=== PATIENT | male | born 1995 | race Caucasian/White ===

== ENCOUNTER 2016-10-09 22:09 | Emergency (ER) | payer OTHER ==
[~2016-10-09] VITALS: Ht 177.8 cm; Wt 128.0 kg
[~2016-10-09 22:09] MED LIST: BACTDS PO; CEPH-443 PO
[2016-10-09 22:12] VITALS: Ht 177.8 cm; Wt 128.0 kg
[2016-10-10] MEDS ORDERED: ONDANSETRON 4 MG INJ IV STA (01:33)
[2016-10-10] MEDS ORDERED: SOD CHLORIDE 0.9% 1,000 ML IV STA (01:33)
[2016-10-10] MEDS ORDERED: morphine 4 MG/ML VIAL IV STA (01:33)
[2016-10-10] MEDS ORDERED: LURA20TA PO (01:47)
--- NOTE | 2016-10-10 01:48 | ERD ---
ER Documentation Chief Complaint Date/Time DATE: 10/10/16 TIME: 01:46 Chief Complaint lower abdominal pain x 1 week HPI 20-year-old male presents to emergency department for complaints of left lower quadrant abdominal pain for one week, got worse today. Patient described the pain as sharp pain 9/10 scale, worse upon touching the area, denies any nausea vomiting diarrhea or constipation. Patient denies any fever or chills. Patient did not take medications to help with symptoms. Patient denies hematuria or dysuria. Patient denies any scrotal pain or scrotal swelling. Patient denies any penile discharge. Patient denies any sick contacts. ROS All systems reviewed and are negative except as per history of present illness. Medications Home Meds Active Scripts Sulfamethoxazole-Trimethoprim* (Bactrim* DS) 800-160 Mg Tab, 1 TAB PO BID for 7 Days, TAB Prov:JEFRY HERNANDEZ MD 02/25/16 Cephalexin* (Keflex*) 500 Mg Capsule, 500 MG PO QID for 7 Days, CAP Prov:JEFRY HERNANDEZ MD 02/25/16 Reported Medications Lurasidone Hcl (LATUDA) Unknown Strength Tablet, PO DAILY, #30 TAB 10/10/16 Allergies Allergies: Coded Allergies: No Known Allergy (Unverified , 10/09/16) PMhx/Soc Medical and Surgical Hx: pt denies Surgical Hx History of Surgery: No Anesthesia Reaction: No Hx Neurological Disorder: No Hx Respiratory Disorders: Yes (asthma ) Hx Cardiac Disorders: No Hx Psychiatric Problems: Yes (depression, anxiety, schizophrenia, social anxiety, ADD ) Hx Miscellaneous Medical Probl: Yes (left leg DVT; was on a 5150 within the last year; heroin abuse ) Hx Alcohol Use: Yes Hx Substance Use: Yes (heroin, meth abuse, smokes MJ, cocaine IN PAST) Hx Tobacco Use: Yes (1-1/2 pack a day ) Smoking Status: Current every day smoker FmHx Family History: diabetes Physical Exam Vitals Vital Signs Date Time Temp Pulse Resp B/P Pulse Ox O2 Delivery O2 Flow Rate FiO2 10/10/16 04:56 98.6 68 16 114/66 97 Room Air 10/09/16 22:12 98.6 98 20 135/72 98 Physical Exam GENERAL: The patient is well developed and appropriate for usual state of health, in no apparent distress. CHEST: Clear to auscultation bilaterally. There are no rales, wheezes or rhonchi. HEART: Regular rate and rhythm. No murmurs, clicks, rubs or gallops. No S3 or S4. ABDOMEN: Soft, left lower quadrant tenderness noted. Good bowel sounds. No rebound or guarding. No gross peritonitis. No gross organomegaly or masses. BACK: No midline or flank tenderness. EXTREMITIES: Equal pulses bilaterally. There is no peripheral clubbing, cyanosis or edema. No focal swelling or erythema. Full range of motion. Grossly neurovascularly intact. NEURO: Alert and oriented. Cranial nerves 2-12 intact. Motor strength in all 4 extremities with 5/5 strength. Sensation grossly intact. Normal speech and gait. SKIN: There is no apparent rash or petechia. The skin is warm and dry. HEMATOLOGIC AND LYMPHATIC: There is no evidence of excessive bruising or lymphedema. No gross cervical, axillary, or inguinal lymphadenopathy. Result Diagram: 10/10/16 0147 10/10/16 0147 Results 24 hrs Laboratory Tests Test 10/10/16 01:47 10/10/16 03:00 Alanine Aminotransferase (ALT/SGPT) 23IU/L Albumin 4.2g/dl Albumin/Globulin Ratio 1.61 Alkaline Phosphatase 66IU/L Anion Gap 18 Aspartate Amino Transf (AST/SGOT) 15IU/L Basophils # 0.110^3/ul Basophils % 0.9% Blood Urea Nitrogen 14mg/dl Calcium Level 9.5mg/dl Carbon Dioxide Level 25mmol/L Chloride Level 106mmol/L Creatinine 0.81mg/dl Direct Bilirubin 0.00mg/dl Eosinophils # 1.410^3/ul Eosinophils % 8.7% Globulin 2.60g/dl Glucose Level 94mg/dl Hematocrit 42.3% Hemoglobin 14.1g/dl Indirect Bilirubin 0.1mg/dl Lipase 81U/L Lymphocytes # 5.010^3/ul Lymphocytes % 31.6% Mean Corpuscular Hemoglobin 29.4pg Mean Corpuscular Hemoglobin Concent 33.3g/dl Mean Corpuscular Volume 88.1fl Mean Platelet Volume 10.1fl Monocytes # 1.410^3/ul Monocytes % 8.7% Neutrophils # 7.810^3/ul Neutrophils % 49.8% Nucleated Red Blood Cells # 0.010^3/ul Nucleated Red Blood Cells % 0.0/100WBC Platelet Count 60874^3/UL Potassium Level 3.9mmol/L Red Blood Count 4.8010^6/ul Red Cell Distribution Width 14.3% Sodium Level 145mmol/L Total Bilirubin 0.1mg/dl Total Protein 6.8g/dl White Blood Count 15.710^3/ul Urine Bilirubin NEGATIVE Urine Clarity CLEAR Urine Color LT. YELLOW Urine Glucose NEGATIVE% Urine Hemoglobin NEGATIVE Urine Ketones NEGATIVE Urine Leukocyte Esterase NEGATIVE Urine Nitrite NEGATIVE Urine Specific Mackey 1.020 Urine Total Protein NEGATIVE Urine Urobilinogen 0.2 E.U./dL Urine pH 5.5 Current Medications Medications (Trade) Dose Ordered Sig/Rory Route PRN Reason Start Time Stop Time Status Last Admin Dose Admin Sodium Chloride (NS) 1,000 ml @ 1,000 mls/hr Q1H STAT IV 10/10/16 01:33 10/10/16 02:32 DC 10/10/16 02:06 Morphine Sulfate (morphine) 4 mg ONCE STAT IV 10/10/16 01:33 10/10/16 01:34 DC 10/10/16 02:06 Ondansetron HCl 4 mg 4 mg ONCE STAT IV 10/10/16 01:33 10/10/16 01:34 DC 10/10/16 02:06 Sodium Chloride (NS) 100 ml @ ud STK-MED ONCE .ROUTE 10/10/16 02:53 10/10/16 02:54 DC 10/10/16 03:14 Iohexol (Omnipaque 300mg/ ml) 150 ml STK-MED ONCE .ROUTE 10/10/16 02:53 10/10/16 02:54 DC 10/10/16 03:14 Patient was given medication for pain here in emergency department, after treatment, patient verbalized feeling much better. Patient's pain is improved. Patient was given Zofran here in the emergency department. After treatment, patient was able to tolerate po fluids here in the emergency department without any vomiting. There is no signs and symptoms of dehydration. Normal saline IV bolus was given here in emergency department for rehydration, patient tolerated IV fluids. PROCEDURE: CT Abdomen and pelvis with contrast CLINICAL INDICATION: Abdominal pain TECHNIQUE: Spiral CT images through the abdomen and pelvis without administration of oral and during administration of 100 cc of Omnipaque-300 contrast material. Multiplanar reconstructions. The total exam CTDI equals 16.99 mGy and the total exam DLP equals 1145.36 mGy-cm. One or more of the following dose reduction techniques were used: automated exposure control, adjustment of the mA and/or kV according to patient size, or use of iterative reconstruction technique. COMPARISON: None. FINDINGS: Slight atelectasis of the lung bases is seen. No pleural effusion is seen. . The aorta is normal in caliber. The liver, spleen, adrenals, kidneys, and pancreas are unremarkable in appearance.. No biliary or pancreatic ductal dilatation is seen. The appendix is normal in appearance. No adenopathy or ascites is seen. There is no evidence for bowel obstruction, free air, or abscess. The bladder and prostate are unremarkable in appearance. There is a focal 2.3 x 2.9 cm area of inflammatory change within the fat anterior and medial to the distal descending colon with fat density centrally. The appearance is more suggestive of torsed appendix epiploica rather than focal diverticulitis although there is mild colonic diverticulosis. No bony abnormality is seen. IMPRESSION: Probable torsed appendix epiploica adjacent to the distal descending colon. Very mild distal descending colon diverticulitis is possible although less likely. No free air or abscess. RPTAT: [facility] Physician Padma Date Time Electronically viewed and signed by Dior Sequeira Physician on 10/10/2016 03 :29 LE/ CC: ENMANUEL GUY [employer] I discussed this case with my attending physician, Dr. Temple, he reviewed patient's CT scan abdomen and pelvis with me, he said outpatient management is appropriate at this time with ciprofloxacin and Flagyl ibuprofen and Nezperce, strict return to ER precautions for any worsening symptoms, 8 hour follow up is advised to the patient. Procedures/MDM Medical Decision Making: Patient's symptoms of leg is consistent with diverticulitis and a torsed appendix epiploica, per discussion with my attending physician, Dr. Levin, outpatient management is appropriate at this time, he recommended to send him patient with Flagyl, Cipro And pain medications. Strict return to ER precautions, 8 hour follow was appropriate at this time to ensure the patient is not developing abdominal emergencies. There is low suspicion for abdominal emergencies at this time. Patients abdominal exam is normal at this time. Patients radiology exam does not show any abdominal emergencies at this time. There is low suspicion for appendicitis, cholecystitis, abdominal aortic aneurysms or peritonitis at this time. There is low suspicion for sepsis. Patient appears well and is hemodynamically stable. Disposition: Home. Condition: Stable Prescription ciprofloxacin, Flagyl, ibuprofen, Nezperce Instructions: Patient is advised to take medications as prescribed. Patient is advised to rest, increase fluid intake and do brat diet for next 1-2 days and progress as tolerated. Patient is advised that if symptoms are worse, severe abdominal pain, uncontrolled vomiting, high fever, severe flank pain, worst signs and symptoms, to return to the emergency department immediately. Otherwise, patient can follow up with primary care doctor or here in emergency department in 8 hours. Departure Diagnosis: Primary Impression: Torsion of appendix epiploicae Additional Impression: Diverticulitis Diverticulitis site: large intestine Diverticulitis bleeding: without bleeding Diverticulitis complication: without perforation or abscess Qualified Code: K57.32 - Diverticulitis of large intestine without perforation or abscess without bleeding Condition: Stable Patient Instructions: Diverticulitis Additional Instructions: Patient is advised to take medications as prescribed. Patient is advised to rest, increase fluid intake and do brat diet for next 1-2 days and progress as tolerated. Patient is advised that if symptoms are worse, severe abdominal pain , uncontrolled vomiting, high fever, severe flank pain, worst signs and symptoms , to return to the emergency department immediately. Otherwise, patient can follow up with primary care doctor or here in emergency department in 8 hours. ENMANUEL GUY NP Oct 10, 2016 01:48
[2016-10-10 02:13] LABS: ADD SCAN DIFF NO
[2016-10-10 02:16] LABS: BASOPHIL # 0.1 10^3/ul (0.0-0.1); BASOPHILS % 0.9 % (0.0-2.0); EOSINOPHILS # 1.4 10^3/ul (0.0-0.5); EOSINOPHILS % 8.7 % (0.0-7.0); HEMATOCRIT 42.3 % (42.0-52.0); HEMOGLOBIN 14.1 g/dl (14.0-18.0); LYMPHOCYTES % 31.6 % (15.0-51.0); MEAN CORPUSCULAR HEMOGLOBIN 29.4 pg (29.0-33.0); MEAN CORPUSCULAR HGB CONC 33.3 g/dl (32.0-37.0); MEAN CORPUSCULAR VOLUME 88.1 fl (82.0-101.0); MEAN PLATELET VOLUME 10.1 fl (7.4-10.4); MONOCYTE # 1.4 10^3/ul (0.3-0.9); MONOCYTES % 8.7 % (0.0-11.0); NEUTROPHIL # 7.8 10^3/ul (1.6-7.5); NEUTROPHILS % 49.8 % (39.0-77.0); PLATELET COUNT 303 10^3/UL (140-415); RED CELL DISTRIBUTION WIDTH 14.3 % (11.5-14.5); WHITE BLOOD COUNT 15.7 10^3/ul (4.8-10.8)
[2016-10-10 02:25] LABS: ALBUMIN 4.2 g/dl (3.3-4.9); POTASSIUM 3.9 mmol/L (3.5-5.1)
[2016-10-10 02:27] LABS: CREATININE 0.81 mg/dl (0.61-1.24)
[2016-10-10 02:28] LABS: ALBUMIN/GLOBULIN RATIO 1.61; BILIRUBIN,INDIRECT 0.1 mg/dl (0-1.1); BILIRUBIN,TOTAL 0.1 mg/dl (0.2-1.3); CALCIUM 9.5 mg/dl (8.4-10.2); TOTAL PROTEIN 6.8 g/dl (6.1-8.1)
[2016-10-10] MEDS ORDERED: SOD CHLORIDE 0.9% 100 ML ONE (02:53)
[2016-10-10] MEDS ORDERED: IOHEXOL 300MG/ML 150 ML BTL ONE (02:53)
[2016-10-10 03:20] LABS: ADD UMIC NO; URINE BILIRUBIN (Dip) NEGATIVE (NEGATIVE); URINE BLOOD (Dip) NEGATIVE (NEGATIVE); URINE COLOR LT. YELLOW (YELLOW); URINE GLUCOSE (Dip) NEGATIVE (NEGATIVE); URINE KETONES (Dip) NEGATIVE (NEGATIVE); URINE LEUKOCYTE ESTERASE (Dip) NEGATIVE (NEGATIVE); URINE NITRITE (Dip) NEGATIVE (NEGATIVE); URINE TOTAL PROTEIN (Dip) NEGATIVE (NEGATIVE); URINE UROBILINOGEN (Dip) 0.2 E.U./dL (0.1-1.0)
--- NOTE | 2016-10-10 03:29 | RADRPT ---
PROCEDURE: CT Abdomen and pelvis with contrast CLINICAL INDICATION: Abdominal pain TECHNIQUE: Spiral CT images through the abdomen and pelvis without administration of oral and duri ng administration of 100 cc of Omnipaque-300 contrast material. Multiplanar reconstructions. The t otal exam CTDI equals 16.99 mGy and the total exam DLP equals 1145.36 mGy-cm. One or more of the fol lowing dose reduction techniques were used: automated exposure control, adjustment of the mA and/or kV according to patient size, or use of iterative reconstruction technique. COMPARISON: None. FINDINGS: Slight atelectasis of the lung bases is seen. No pleural effusion is seen. . The aorta is normal in caliber. The liver, spleen, adrenals, kidneys, and pancreas are unremarkable in appearance.. No biliary or pa ncreatic ductal dilatation is seen. The appendix is normal in appearance. No adenopathy or ascites is seen. There is no evidence for bowel obstruction, free air, or abscess. The bladder and prostate are unremarkable in appearance. There is a focal 2.3 x 2.9 cm area of inflammatory change within t he fat anterior and medial to the distal descending colon with fat density centrally. The appearanc e is more suggestive of torsed appendix epiploica rather than focal diverticulitis although there is mild colonic diverticulosis. No bony abnormality is seen. IMPRESSION: Probable torsed appendix epiploica adjacent to the distal descending colon. Very mild distal descen ding colon diverticulitis is possible although less likely. No free air or abscess. RPTAT: [facility] Physician Padma Date Time Electronically viewed and signed by Dior Sequeira Physician on 10/10/2016 03:29 RAJENDRA/
[2016-10-10] MEDS ORDERED: ONDA4TAB14 PO (05:25)
[2016-10-10] MEDS ORDERED: CIPR500T4 PO (05:25)
[2016-10-10] MEDS ORDERED: HYDR-906 PO (05:25)
[2016-10-10] MEDS ORDERED: METR500T PO (05:25)
[2016-10-10 05:28] VITALS: BP 102/54; PULSE 55; RESP 16; TEMP 97.9
== END 2016-10-10 05:45 | disposition home or self-care (01) ==
LOC: FTE 22:09
DX: K55.022 Diffuse acute infarction of small intestine (principal); K57.32 Diverticulitis of large intestine without perforation or abscess without bleeding; F17.210 Nicotine dependence, cigarettes, uncomplicated; J45.909 Unspecified asthma, uncomplicated
CPT/HCPCS: 36415; 74177; 80053; 81003; 83690; 85025; 96374; 96375; J2270; J2405; J7030; Q9967; Z7502; Z7610